=== PATIENT | female | born 1995 ===

== ENCOUNTER 2016-03-07 19:21 | Emergency (ER) | payer OTHER ==
--- NOTE | 2016-03-07 20:36 | UC ---
Skin Complaint HPI - HPI Summary HPI Summary: Itchy rash on trunk starting 10 days ago. [place], but had been back home about 3 weeks before itching started. No lesions on arms , legs, or face. No new medications or exposures. Also concerned about tickle in throat and cough since last night. Had a little trouble breathing while rowing today. - History of Current Complaint Chief Complaint: UCAllergicReaction Time Seen by Provider: 03/07/16 20:03 Stated Complaint: HIVES,ITCHING Hx Obtained From: Patient Hx Last Menstrual Period: 02/13/16 ?: No Onset/Duration: Gradual Onset, Lasting Days Timing: Constant Onset Severity: Mild Current Severity: Mild Location: Diffuse Character: Pruritus Aggravating: Nothing Alleviating: Nothing Associated Signs & Symptoms: Positive: Rash - Allergy/Home Medications Allergies/Adverse Reactions: Allergies Allergy/AdvReac Type Severity Reaction Status Date / Time No Known Allergies Allergy Verified 03/07/16 20:04 Review of Systems Constitutional: Negative Skin: Rash Eyes: Negative ENT: Negative Respiratory: Cough Cardiovascular: Negative Gastrointestinal: Negative Genitourinary: Negative Motor: Negative Neurovascular: Negative Musculoskeletal: Negative Neurological: Negative Psychological: Negative All Other Systems Reviewed And Are Negative: Yes PMH/Surg Hx/FS Hx/Imm Hx Endocrine History Of: Denies: Diabetes, Thyroid Disease Cardiovascular History Of: Denies: Cardiac Disorders, Hypertension Respiratory History Of: Denies: COPD, Asthma GI/ History Of: Denies: Ulcer - Surgical History Surgical History: Yes Surgery Procedure, Year, and Place: cyst removed from wrist, wisdom teeth extraction - Family History Known Family History: Positive: None - Social History Occupation: Student Alcohol Use: Rare Substance Use Type: None Smoking Status (MU): Never Smoked Tobacco Physical Exam Triage Information Reviewed: Yes Appearance: Well-Appearing, No Pain Distress, Well-Nourished Vital Signs: Initial Vital Signs Temp 98.9 F 03/07/16 20:05 Pulse 86 03/07/16 20:05 Resp 18 03/07/16 20:05 BP 118/65 03/07/16 20:05 Pulse Ox 98 03/07/16 20:05 Vital Signs Reviewed: Yes Eye Exam: Normal Eyes: Positive: Conjunctiva Clear ENT Exam: Normal ENT: Positive: Normal ENT inspection, Hearing grossly normal, Pharynx normal, TMs normal, Other: - no oropharyngeal edema. Negative: Tonsillar swelling, Tonsillar exudate Dental Exam: Normal Neck exam: Normal Neck: Positive: Supple, Nontender, No Lymphadenopathy Respiratory Exam: Normal Respiratory: Positive: Chest non-tender, Lungs clear, Normal breath sounds, No respiratory distress, No accessory muscle use Cardiovascular Exam: Normal Cardiovascular: Positive: RRR, No Murmur Musculoskeletal Exam: Normal Neurological Exam: Normal Psychological Exam: Normal Skin Exam: Other - pink/salmon-colored macules on trunk and back, in dermatomal pattern. No herald patch noted. Course/Dx - Diagnoses Provider Diagnoses: pityriasis rosea Discharge - Discharge Plan Condition: Stable Disposition: HOME Patient Education Materials: Pityriasis rosea (ED), Cold Symptoms (ED) Additional Instructions: For itching you can use cetirizine (zyrtec) 10mg tab once in the morning; if you need further help, take 25-50mg diphenhydramine at bedtime.
== END 2016-03-07 20:30 | disposition home or self-care (01) ==
LOC: UCEAST 19:21
DX: L42 Pityriasis rosea (principal); R05 Cough
CPT/HCPCS: 99211; G0463

== ENCOUNTER 2016-10-24 07:52 | Emergency (ER) | payer OTHER ==
--- NOTE | 2016-10-24 08:50 | UC ---
Eye Complaint HPI - HPI Summary HPI Summary: RIGHT EYE SORE, RED AND IRRITATED SINCE THIS MORNING. NO CONTACT USE. NO DISCHARGE. ON ROWING TEAM, FRIENDS HAVE BEEN SICK - History of Current Complaint Hx Obtained From: Patient Hx Last Menstrual Period: 10/22/16 Onset/Duration: Gradual Onset, Lasting Hours Timing: Hours Severity Initially: Mild Severity Currently: Mild Location of Injury: Conjunctiva Character: Dull Alleviating Factor(s): Nothing Associated Signs And Symptoms: Positive: Drainage (Clear). Negative: Photophobia, Drainage (Purulent), Vision Impairment Bilateral, Vision Impairment Right, Vision Impairment Left, Fever, Swelling - Risk Factors Penetrating Injury Risk Factor: Negative Acute Glaucoma Risk Factors: Negative <Manolo Simon - Last Filed: 10/24/16 08:45> <Gricelda Mack - Last Filed: 10/24/16 09:42> - History of Current Complaint Chief Complaint: UCEye Stated Complaint: EYE COMPLAINT Time Seen by Provider: 10/24/16 08:10 - Allergies/Home Medications Allergies/Adverse Reactions: Allergies Allergy/AdvReac Type Severity Reaction Status Date / Time No Known Allergies Allergy Verified 10/24/16 08:11 PMH/Surg Hx/FS Hx/Imm Hx Previously Healthy: Yes - Surgical History Surgical History: Yes Surgery Procedure, Year, and Place: cyst removed from wrist, wisdom teeth extraction - Family History Known Family History: Positive: None - Social History Occupation: Student Lives: With Family Alcohol Use: Rare Substance Use Type: None Smoking Status (MU): Never Smoked Tobacco <Manolo Simon - Last Filed: 10/24/16 08:45> Review of Systems Constitutional: Negative Skin: Negative Eyes: Eye Redness ENT: Negative Respiratory: Negative Cardiovascular: Negative Gastrointestinal: Negative Genitourinary: Negative Motor: Negative Neurovascular: Negative Musculoskeletal: Negative Neurological: Negative Psychological: Negative Is Patient Immunocompromised?: No All Other Systems Reviewed And Are Negative: Yes <Manolo Simon - Last Filed: 10/24/16 08:45> Physical Exam Triage Information Reviewed: Yes Appearance: Well-Appearing, No Pain Distress, Well-Nourished Vital Signs: Initial Vital Signs Temp 97.8 F 10/24/16 08:12 Pulse 57 10/24/16 08:12 Resp 16 10/24/16 08:12 BP 117/68 10/24/16 08:12 Pulse Ox 98 10/24/16 08:12 Vital Signs Reviewed: Yes Eyes: Positive: Conjunctiva Inflamed - RIGHT ENT Exam: Normal ENT: Positive: Normal ENT inspection, Hearing grossly normal, Pharynx normal, TMs normal Dental Exam: Normal Neck exam: Normal Neck: Positive: Supple, Nontender, No Lymphadenopathy Respiratory Exam: Normal Respiratory: Positive: Chest non-tender, Lungs clear, Normal breath sounds, No respiratory distress, No accessory muscle use Cardiovascular Exam: Normal Cardiovascular: Positive: RRR, No Murmur, Pulses Normal Abdominal Exam: Normal Abdomen Description: Positive: Nontender, No Organomegaly Musculoskeletal Exam: Normal Musculoskeletal: Positive: Strength Intact, ROM Intact, No Edema Neurological Exam: Normal Psychological Exam: Normal Psychological: Positive: Normal Response To Family Skin Exam: Normal <Manolo Simon - Last Filed: 10/24/16 08:45> Vital Signs: Initial Vital Signs Temp 97.8 F 10/24/16 08:12 Pulse 57 10/24/16 08:12 Resp 16 10/24/16 08:12 BP 117/68 10/24/16 08:12 Pulse Ox 98 10/24/16 08:12 <Gricelda Mack - Last Filed: 10/24/16 09:42> Eye Complaint Course/Dx - Differential Dx/Diagnosis Differential Diagnosis/HQI/PQRI: Conjunctivitis, Corneal Abrasion Provider Diagnoses: RIGHT CONJUNCTIVITIS <Manolo Simon - Last Filed: 10/24/16 08:45> Discharge <Manolo Simon - Last Filed: 10/24/16 08:45> <Gricelda Mack - Last Filed: 10/24/16 09:42> - Discharge Plan Condition: Stable Disposition: HOME Prescriptions: Tobramycin 0.3% OPHTH.AVNI* 1 drop RIGHT EYE Q4H #1 btl Patient Education Materials: Conjunctivitis (ED) Referrals: [facility]YSICIAN REFERRAL [Outside] No Primary Care Phys,NOPCP [Primary Care Provider] - Attestation Statement User Type: Provider - I was available for consult. This patient was seen by the JIGNA. The patient was not presented to, seen by, or examined by me. -Alejandrina <Gricelda Mack - Last Filed: 10/24/16 09:42>
== END 2016-10-24 08:44 | disposition home or self-care (01) ==
LOC: UCEAST 07:52
DX: H10.9 Unspecified conjunctivitis (principal)
CPT/HCPCS: 99212; G0463